=== PATIENT | female | born 1995 | race Caucasian/White ===

== ENCOUNTER 2022-06-01 18:12 | Emergency (ER) | payer BC ==
[~2022-06-01] VITALS: Ht 157.5 cm; Wt 81.0 kg
[~2022-06-01 18:12] MED LIST: ABILIFY5 MG PO
[2022-06-01 18:23] VITALS: BP 125/87
[2022-06-01 18:35] VITALS: BP 132/91
[2022-06-01] MEDS ORDERED: ALPRAZOLAM0.5 MG PO (18:40)
[2022-06-01] MEDS ORDERED: PAROXETINE10 MG PO (18:41)
[2022-06-01 18:57] LABS: URINE BLOOD DIPSTICK MODERATE (NEGATIVE); URINE COLOR YELLOW; URINE GLUCOSE - DIPSTICK NEGATIVE (NEGATIVE); URINE KETONE 40 mg/dL (NEGATIVE); URINE LEUK ESTERASE NEGATIVE (NEGATIVE); URINE PH 5.5 (4.5-8.0); URINE PROTEIN - DIPSTICK NEGATIVE (NEG-TRACE); URINE SPECIFIC GRAVITY >=1.030; URINE UROBILINOGEN - DIPSTICK 0.2 E.U./dL (0.2)
[2022-06-01 18:59] LABS: BASO% 0.3 % (0-3); EOS% 1.2 % (0-8); HEMATOCRIT 40.6 % (37.0-47.0); HEMOGLOBIN 12.9 g/dl (12.0-16.0); LYMPH% 37.9 % (15-41); MEAN CELL VOLUME 90.4 fL CALC (80.0-100.0); MEAN CORPUSCULAR HGB 28.7 pG CALC (26.0-32.0); MEAN CORPUSCULAR HGB CONC 31.8 g/dL CAL (32.0-36.0); MONO% 6.1 % (2-13); NEUT# 3.73 thou/uL (2.00-7.15); NEUT% 54.5 % (42-76); RED BLOOD COUNT 4.49 mill/uL (4.20-5.60); RED CELL DISTRI WIDTH 13.7 % (11.5-15.5)
[2022-06-01 19:00] VITALS: BP 123/85
[2022-06-01 19:00] LABS: URINE BILIRUBIN - DIPSTICK NEGATIVE (NEGATIVE); URINE NITRITE - DIPSTICK NEGATIVE (Negative)
[2022-06-01 19:01] VITALS: BP 125/80
[2022-06-01 19:01] LABS: URINE SQUAMOUS EPITHELIAL CELL MANY EPI/hpf (0-FEW)
[2022-06-01 19:16] LABS: ALBUMIN 4.4 g/dL (3.2-5.0); ALKALINE PHOSPHATASE 64 u/l (38-126); ANION GAP 11 (6-22 (CALC)); BILIRUBIN, TOTAL 0.3 mg/dL (0.02-1.3); BUN 9 mg/dL (7-17); BUN/CREATININE RATIO 10 (12-20 (CALC)); CARBON DIOXIDE 24 mmol/l (22-30); CHLORIDE 109 mmol/l (95-108); CREATININE 0.9 mg/dL (0.5-1.0); GFR FOR AFR.AMER. > 60 ML/MIN (>=60 (CALC)); GFR OTHER RACES > 60 ML/MIN (>=60 (CALC)); POTASSIUM 3.9 mmol/l (3.5-5.1); SGOT/AST 26 u/l (14-36); SODIUM 140 mmol/l (137-146); TOTAL PROTEIN 7.6 g/dL (6.3-8.2)
[2022-06-01] MEDS ORDERED: TAMSULOSIN0.4 MG PO (19:56)
[2022-06-01] MEDS ORDERED: TORADOL PO (19:56)
[2022-06-01 20:35] VITALS: BP 125/80
== END 2022-06-01 20:37 | disposition home or self-care (01) | DRG 694 ==
LOC: ED 18:12
PROVIDERS: Nurse Practitioner
DX: N13.2 Hydronephrosis with renal and ureteral calculous obstruction (principal)

== ENCOUNTER 2022-06-17 14:36 | Emergency (ER) | payer BC ==
[~2022-06-17] VITALS: Ht 157.5 cm; Wt 72.6 kg
[~2022-06-17 14:36] MED LIST changes: +ALPRAZOLAM0.5 MG PO; +PAROXETINE10 MG PO; +TAMSULOSIN0.4 MG PO; +TORADOL PO
[2022-06-17 15:17] LABS: URINE BLOOD DIPSTICK MODERATE (NEGATIVE); URINE COLOR YELLOW; URINE GLUCOSE - DIPSTICK NEGATIVE (NEGATIVE); URINE KETONE TRACE mg/dL (NEGATIVE); URINE LEUK ESTERASE NEGATIVE (NEGATIVE); URINE PH 5.5 (4.5-8.0); URINE PROTEIN - DIPSTICK NEGATIVE (NEG-TRACE); URINE SPECIFIC GRAVITY >=1.030; URINE UROBILINOGEN - DIPSTICK 0.2 E.U./dL (0.2)
[2022-06-17 15:28] LABS: URINE NITRITE - DIPSTICK NEGATIVE (Negative)
[2022-06-17 15:30] LABS: URINE BILIRUBIN - DIPSTICK SMALL (NEGATIVE); URINE SQUAMOUS EPITHELIAL CELL FEW EPI/hpf (0-FEW)
[2022-06-17 16:23] LABS: BASO% 0.6 % (0-3); EOS% 1.3 % (0-8); HEMATOCRIT 42.5 % (37.0-47.0); HEMOGLOBIN 13.4 g/dl (12.0-16.0); IMMATURE GRANULOCYTES 0.2 % (0.0-5.0); LYMPH% 32.3 % (15-41); MEAN CELL VOLUME 90.8 fL CALC (80.0-100.0); MEAN CORPUSCULAR HGB 28.6 pG CALC (26.0-32.0); MEAN CORPUSCULAR HGB CONC 31.5 g/dL CAL (32.0-36.0); MONO% 7.3 % (2-13); NEUT# 3.12 thou/uL (2.00-7.15); NEUT% 58.3 % (42-76); RED BLOOD COUNT 4.68 mill/uL (4.20-5.60); RED CELL DISTRI WIDTH 13.9 % (11.5-15.5)
[2022-06-17 16:30] LABS: ALBUMIN 4.7 g/dL (3.2-5.0); ALKALINE PHOSPHATASE 53 u/l (38-126); ANION GAP 11 (6-22 (CALC)); BILIRUBIN, TOTAL 0.2 mg/dL (0.02-1.3); BUN 11 mg/dL (7-17); BUN/CREATININE RATIO 13 (12-20 (CALC)); CARBON DIOXIDE 26 mmol/l (22-30); CHLORIDE 108 mmol/l (95-108); CREATININE 0.8 mg/dL (0.5-1.0); GFR FOR AFR.AMER. > 60 ML/MIN (>=60 (CALC)); GFR OTHER RACES > 60 ML/MIN (>=60 (CALC)); POTASSIUM 3.7 mmol/l (3.5-5.1); SGOT/AST 23 u/l (14-36); SODIUM 142 mmol/l (137-146); TOTAL PROTEIN 7.9 g/dL (6.3-8.2)
[2022-06-17] MEDS ORDERED: TAMSULOSIN0.4 MG PO (16:49)
[2022-06-17 17:40] VITALS: BP 122/89
[2022-06-17] MEDS ORDERED: ZOFRAN4 MG/TAB PO (17:40)
== END 2022-06-17 17:30 | disposition home or self-care (01) | DRG 694 ==
LOC: ED 14:36
PROVIDERS: Family Medicine
DX: N20.1 Calculus of ureter (principal); F17.200 Nicotine dependence, unspecified, uncomplicated

== ENCOUNTER 2022-09-13 08:47 | Emergency (ER) | payer BC ==
[~2022-09-13] VITALS: Ht 157.5 cm; Wt 70.2 kg
[~2022-09-13 08:47] MED LIST changes: +ZOFRAN4 MG/TAB PO
[2022-09-13 09:20] LABS: BASO% 0.6 % (0-3); EOS% 1.7 % (0-8); HEMATOCRIT 44.4 % (37.0-47.0); HEMOGLOBIN 14.1 g/dl (12.0-16.0); IMMATURE GRANULOCYTES 0.2 % (0.0-5.0); LYMPH% 35.7 % (15-41); MEAN CELL VOLUME 90.1 fL CALC (80.0-100.0); MEAN CORPUSCULAR HGB 28.6 pG CALC (26.0-32.0); MEAN CORPUSCULAR HGB CONC 31.8 g/dL CAL (32.0-36.0); MONO% 8.7 % (2-13); NEUT# 2.79 thou/uL (2.00-7.15); NEUT% 53.1 % (42-76); RED BLOOD COUNT 4.93 mill/uL (4.20-5.60); RED CELL DISTRI WIDTH 13.9 % (11.5-15.5)
[2022-09-13 09:44] LABS: ALBUMIN 4.7 g/dL (3.2-5.0); ALKALINE PHOSPHATASE 65 u/l (38-126); ANION GAP 14 (6-22 (CALC)); BUN 5 mg/dL (7-17); BUN/CREATININE RATIO 6 (12-20 (CALC)); CARBON DIOXIDE 24 mmol/l (22-30); CHLORIDE 107 mmol/l (95-108); CREATININE 0.9 mg/dL (0.5-1.0); ETHYL ALCOHOL 0 mg/dl (0-30); GFR FOR AFR.AMER. > 60 ML/MIN (>=60 (CALC)); GFR OTHER RACES > 60 ML/MIN (>=60 (CALC)); POTASSIUM 3.6 mmol/l (3.5-5.1); SGOT/AST 22 u/l (14-36); SODIUM 142 mmol/l (137-146); TOTAL PROTEIN 7.8 g/dL (6.3-8.2)
[2022-09-13 09:45] LABS: BILIRUBIN, TOTAL 0.3 mg/dL (0.02-1.3)
[2022-09-13] MEDS ORDERED: ZOFRAN4 MG/TAB PO (09:52)
[2022-09-13 10:06] VITALS: BP 106/79
== END 2022-09-13 10:16 | disposition home or self-care (01) | DRG 948 ==
LOC: ED 08:47
PROVIDERS: Family Medicine
DX: R53.83 Other fatigue (principal); F17.200 Nicotine dependence, unspecified, uncomplicated

== ENCOUNTER 2022-10-28 11:28 | Emergency (ER) | payer BC ==
[2022-10-28] VITALS (30 sets, daily range): BP systolic 86–128; BP diastolic 52–93
[~2022-10-28] VITALS: Ht 157.5 cm; Wt 71.0 kg
[2022-10-28 11:59] LABS: BASO% 0.7 % (0-3); EOS% 1.2 % (0-8); IMMATURE GRANULOCYTES 0.1 % (0.0-5.0); LYMPH% 26.8 % (15-41); MEAN CELL VOLUME 91.5 fL CALC (80.0-100.0); MEAN CORPUSCULAR HGB 29.3 pG CALC (26.0-32.0); MONO% 6.2 % (2-13); NEUT# 4.95 thou/uL (2.00-7.15); RED BLOOD COUNT 4.1 mill/uL (4.20-5.60); RED CELL DISTRI WIDTH 14.3 % (11.5-15.5)
[2022-10-28 12:00] LABS: HEMATOCRIT 37.5 % (37.0-47.0)
[2022-10-28 12:17] LABS: ALKALINE PHOSPHATASE 61 u/l (38-126); ANION GAP 11 (6-22 (CALC)); BILIRUBIN, TOTAL 0.3 mg/dL (0.02-1.3); BUN 5 mg/dL (7-17); BUN/CREATININE RATIO 5 (12-20 (CALC)); CARBON DIOXIDE 24 mmol/l (22-30); CHLORIDE 107 mmol/l (95-108); ETHYL ALCOHOL 0 mg/dl (0-30); GFR FOR AFR.AMER. > 60 ML/MIN (>=60 (CALC)); GFR OTHER RACES > 60 ML/MIN (>=60 (CALC)); POTASSIUM 3.5 mmol/l (3.5-5.1); SGOT/AST 26 u/l (14-36); SODIUM 138 mmol/l (137-146); TOTAL PROTEIN 7.2 g/dL (6.3-8.2)
== END 2022-10-28 21:05 | disposition designated cancer center or children's hospital (05) | DRG 918 ==
LOC: ED 11:28
PROVIDERS: Family Medicine
DX: T42.4X2A Poisoning by benzodiazepines, intentional self-harm, initial encounter (principal); T51.0X2A Toxic effect of ethanol, intentional self-harm, initial encounter; T43.222A Poisoning by selective serotonin reuptake inhibitors, intentional self-harm, initial encounter; F32.A Depression, unspecified; F41.9 Anxiety disorder, unspecified; F17.200 Nicotine dependence, unspecified, uncomplicated; Z91.51 Personal history of suicidal behavior

== ENCOUNTER 2022-11-23 11:44 | Emergency (ER) | payer OTHER, BC ==
[~2022-11-23] VITALS: Ht 157.5 cm; Wt 68.0 kg
[2022-11-23 14:02] VITALS: BP 129/96
== END 2022-11-23 14:05 | disposition home or self-care (01) | DRG 951 ==
LOC: ED 11:44
PROC: 3E0234Z Introduction of Serum, Toxoid and Vaccine into Muscle, Percutaneous Approach (ICD-10-PCS; principal; 2022-11-23)
DX: Z23 Encounter for immunization (principal); S51.012A Laceration without foreign body of left elbow, initial encounter; W26.8XXA Contact with other sharp object(s), not elsewhere classified, initial encounter; Y92.89 Other specified places as the place of occurrence of the external cause; Y99.0 Civilian activity done for income or pay; F17.200 Nicotine dependence, unspecified, uncomplicated

== ENCOUNTER 2022-11-25 18:21 | Emergency (ER) | payer BC ==
[~2022-11-25] VITALS: Ht 157.5 cm; Wt 76.0 kg
[2022-11-25 18:29] VITALS: BP 138/83
== END 2022-11-25 18:35 | disposition left against medical advice (07) | DRG 951 ==
LOC: ED 18:21 → LWOBS 18:34
DX: Z53.21 Procedure and treatment not carried out due to patient leaving prior to being seen by health care provider (principal)

== ENCOUNTER 2023-09-19 10:33 | Emergency (ER) | payer BC ==
[2023-09-19] VITALS (10 sets, daily range): BP systolic 94–117; BP diastolic 62–79
[~2023-09-19] VITALS: Ht 157.5 cm; Wt 68.0 kg
[~2023-09-19 10:33] MED LIST changes: +EFFEXOR XR75 MG/CAP PO; +IMODIUM2 MG PO; +PROMETHAZINE HY25 M1 PO; +VENLAFAXINE H37.5 M2 PO; +VENLAFAXINE37.5 M2 PO; +VISTARIL25 MG PO
[2023-09-19] MEDS ORDERED: ONDANSETRON HCl 4 MG/2 ML SDV IV ONE (10:35)
[2023-09-19] MEDS ORDERED: SODIUM CHLORIDE 0.9% 1,000 ML IV ONE ×2 (10:35→12:35)
[2023-09-19] MEDS ORDERED: KETOROLAC TROMETHAMINE 30 MG/ML SDV IV ONE (10:45)
[2023-09-19 10:54] LABS: URINE BILIRUBIN - DIPSTICK Negative (NEGATIVE); URINE BLOOD DIPSTICK Negative (NEGATIVE); URINE GLUCOSE - DIPSTICK Negative (NEGATIVE); URINE KETONE Negative (NEGATIVE); URINE NITRITE - DIPSTICK Negative (Negative); URINE PROTEIN - DIPSTICK Negative (NEG-TRACE); URINE SPECIFIC GRAVITY 1.015; URINE UROBILINOGEN - DIPSTICK 0.2 E.U./dL (0.2)
[2023-09-19 10:56] LABS: URINE COLOR Yellow; URINE LEUK ESTERASE Small (NEGATIVE)
[2023-09-19 10:57] LABS: URINE BACTERIA FEW hpf; URINE EPITHELIAL CELLS FEW EPI/hpf (0-FEW); URINE WBC 0-2 WBC/hpf (0-5)
[2023-09-19 11:15] LABS: BASO% 0.2 % (0-3); HEMATOCRIT 39.8 % (37.0-47.0); HEMOGLOBIN 12.4 g/dl (12.0-16.0); IMMATURE GRANULOCYTES 0.2 % (0.0-5.0); LYMPH% 8.4 % (15-41); MEAN CELL VOLUME 93.2 fL CALC (80.0-100.0); MEAN CORPUSCULAR HGB CONC 31.2 g/dL CAL (32.0-36.0); MONO% 4.4 % (2-13); NEUT# 13.57 thou/uL (2.00-7.15); NEUT% 86.8 % (42-76); RED BLOOD COUNT 4.27 mill/uL (4.20-5.60); RED CELL DISTRI WIDTH 14.6 % (11.5-15.5)
[2023-09-19 11:24] LABS: ALBUMIN 4.3 g/dL (3.2-5.0); BILIRUBIN, TOTAL 0.5 mg/dL (0.02-1.3); POTASSIUM 3.6 mmol/l (3.5-5.1); TOTAL PROTEIN 7.7 g/dL (6.3-8.2)
[2023-09-19] MEDS ORDERED: TORADOL PO (12:43)
[2023-09-19] MEDS ORDERED: TRAMADOL HYDROC50 M1 PO (12:43)
[2023-09-19] MEDS ORDERED: OMNICEF300 MG PO (12:43)
== END 2023-09-19 13:04 | disposition home or self-care (01) | DRG 694 ==
LOC: ED 10:33
PROVIDERS: Family Medicine
DX: N20.1 Calculus of ureter (principal); R82.71 Bacteriuria

== ENCOUNTER 2023-09-20 13:38 | Emergency (ER) | payer BC ==
[~2023-09-20] VITALS: Ht 157.5 cm; Wt 72.6 kg
[~2023-09-20 13:38] MED LIST changes: +OMNICEF300 MG PO; +TRAMADOL HYDROC50 M1 PO
[2023-09-20] MEDS ORDERED: SODIUM CHLORIDE 0.9% 1,000 ML IV ONE (14:15)
[2023-09-20] MEDS ORDERED: KETOROLAC TROMETHAMINE 30 MG/ML SDV IV ONE (14:20)
[2023-09-20 14:34] LABS: BASO% 0.2 % (0-3); HEMATOCRIT 35.6 % (37.0-47.0); HEMOGLOBIN 11.4 g/dl (12.0-16.0); IMMATURE GRANULOCYTES 0.2 % (0.0-5.0); LYMPH% 10.3 % (15-41); MEAN CELL VOLUME 92.7 fL CALC (80.0-100.0); MEAN CORPUSCULAR HGB 29.7 pG CALC (26.0-32.0); MONO% 6.6 % (2-13); NEUT# 10.5 thou/uL (2.00-7.15); NEUT% 82.7 % (42-76); RED BLOOD COUNT 3.84 mill/uL (4.20-5.60)
[2023-09-20 15:02] LABS: ALBUMIN 3.7 g/dL (3.2-5.0); BILIRUBIN, TOTAL 0.6 mg/dL (0.02-1.3); CREATININE 1.5 mg/dL (0.5-1.0); POTASSIUM 3.2 mmol/l (3.5-5.1); TOTAL PROTEIN 6.9 g/dL (6.3-8.2)
[2023-09-20 15:49] LABS: URINE BLOOD DIPSTICK Trace-intact (NEGATIVE); URINE GLUCOSE - DIPSTICK Negative (NEGATIVE); URINE KETONE 15 mg/dL (NEGATIVE); URINE LEUK ESTERASE Trace (NEGATIVE); URINE NITRITE - DIPSTICK Negative (Negative); URINE PH 5.5 (4.5-8.0); URINE PROTEIN - DIPSTICK 100 mg/dL (NEG-TRACE); URINE SPECIFIC GRAVITY 1.025; URINE UROBILINOGEN - DIPSTICK 0.2 E.U./dL (0.2)
[2023-09-20 15:50] LABS: URINE COLOR Yellow
[2023-09-20 16:01] LABS: URINE AMORPH SEDIMENT FEW hpf (NONE-FEW); URINE BACTERIA FEW hpf; URINE MUCUS FEW hpf (NONE-FEW); URINE SQUAMOUS EPITHELIAL CELL FEW EPI/hpf (0-FEW)
[2023-09-20 16:16] VITALS: BP 105/75
== END 2023-09-20 16:37 | disposition home or self-care (01) | DRG 690 ==
LOC: ED 13:38
PROVIDERS: Family Medicine
DX: N13.6 Pyonephrosis (principal); F41.9 Anxiety disorder, unspecified; F32.A Depression, unspecified; F17.210 Nicotine dependence, cigarettes, uncomplicated; Z87.442 Personal history of urinary calculi